=== PATIENT | male | born 1985 | race Caucasian/White ===

== ENCOUNTER 2017-09-24 06:45 | Day surgery (SDC) | payer BC ==
[~2017-09-24 06:45] MED LIST: Lactated Ringers 1,000 ML IV SCH
[2017-09-24] MEDS ORDERED: Midazolam 1 MG/ML 2 ML SDV IV ONE (08:00)
[2017-09-24] MEDS ORDERED: Propofol 200 MG/20 ML SDV IV ONE (08:00)
--- NOTE | 2017-09-24 08:19 | PCM.OPNOTE ---
- General Post-Op/Procedure Note Date of Surgery/Procedure: 09/24/17 Operative Procedure(s): c scope Findings: normal scope Pre Op Diagnosis: hx of familial polyposis Post-Op Diagnosis: normal scope Anesthesia Technique: MAC Primary Surgeon: Lauri Ballard Anesthesia Provider: Zach York Pathology: none Complications: None Condition: Good Free Text/Narrative:: #[id number] see dictation
--- NOTE | 2017-09-24 08:43 | OR ---
DATE OF OPERATION: 09/24/2017 SURGEON: Lauri Ballard MD PROCEDURE PERFORMED: Colonoscopy. PREOPERATIVE DIAGNOSIS: Family history of familial polyposis. POSTOPERATIVE DIAGNOSIS: Normal colon. INDICATIONS FOR PROCEDURE: This is a 32-year-old white male, who presents with a family history of familial polyposis. He presents now for his initial colonoscopy. PROCEDURE IN DETAIL: After an excellent IV sedation was administered, digital rectal exam was performed. No marked abnormality was noted. The flexible colonoscope was inserted and advanced without difficulty to the patient's cecum. The prep was excellent. The following findings were noted. Ascending colon, unremarkable. Transverse colon, unremarkable. Descending colon, unremarkable. Sigmoid and rectum unremarkable. Colon was deflated as the scope was removed. The patient tolerated the procedure well, and was taken to recovery room in good condition. Repeat colonoscopy in 10 years. /[id number] /SUMIL
== END 2017-09-24 09:31 | disposition home or self-care (01) ==
LOC: FB.SDS 06:45
PROVIDERS: ATTEND Surgery
DX: Z12.11 Encounter for screening for malignant neoplasm of colon (principal); Z80.0 Family history of malignant neoplasm of digestive organs; K21.9 Gastro-esophageal reflux disease without esophagitis; Z79.899 Other long term (current) drug therapy; Z88.0 Allergy status to penicillin
CPT/HCPCS: 45378; J2250; J2704; J7120